=== PATIENT | male | born 1980 | race Caucasian/White ===

== ENCOUNTER 2021-05-07 21:49 | Emergency (ER) | payer OTHER, SELFPAY ==
[2021-05-07 21:56] VITALS: BP 135/100; PULSE 89; RESP 24; TEMP 37.3; O2SAT 100
--- NOTE | 2021-05-07 22:20 | ED_ITS ---
HPI - Abdominal Pain General Chief Complaint: Abdominal Pain Stated Complaint: POSS KIDNEY STONES BACK PAIN Time Seen by Provider: 05/07/21 22:20 Source: patient Mode of arrival: Ambulatory History of Present Illness HPI narrative: The patient presents with right mid back pain. The pain appears to be episodic. He initially woke with the pain this morning. The pain does not radiate to his abdomen, pelvis or genitalia. He has no history of kidney stones. He has no dysuria. He recently had right forearm/hand surgery due to fracture he suffered on April 29. He has no associated cough, chest pain or dyspnea. He has no hemoptysis. With the casting his right arm, he concludes a mid slept oddly. He has had no obvious injury to create the pain. He has a cast on his right forearm/hand, he has no other extremity discomfort. Related Data Allergies Allergy/AdvReac Type Severity Reaction Status Date / Time No Known Drug Allergies Allergy Verified 05/07/21 22:32 Review of Systems Constitutional Constitutional: Reports as per HPI and Denies headache(s) Comments: No fever, chills or cough ENT Ears, Nose, Mouth, and Throat: Denies vertigo, Denies dizziness, Denies headache(s), Denies hoarseness and Denies sore throat Cardiovascular Cardiovascular: Denies chest pain, Denies rapid heart rate and Denies dyspnea Respiratory Respiratory: Denies cough, Denies hemoptysis and Denies dyspnea Gastrointestinal Gastrointestinal: Denies abdominal pain, Denies nausea and Denies vomiting Genitourinary Genitourinary: Denies testicular pain Musculoskeletal Comments: Right midback pain. Increased with motion. Integumentary/Breasts Skin/Breast: Denies rash and Denies sores Neurologic Neurologic: Denies vertigo, Denies dizziness and Denies headache(s) Patient History Social History Smoking Status: Never smoker Smoking Status: Never smoker Exam Initial Vital Signs Initial Vital Signs: Vital Signs Temperature 99.1 F 05/07/21 21:56 Pulse Rate 89 05/07/21 21:56 Respiratory Rate 24 05/07/21 21:56 Blood Pressure 135/100 H 05/07/21 21:56 Pulse Oximetry 100 05/07/21 21:56 Const General: cooperative, healthy appearing and comfortable HENMT Head: normal to inspection, normocephalic and atraumatic Neck Neck: No JVD Chest Chest: normal inspection of the chest and normal palpation of entire chest wall Resp Effort & Inspection: normal respiratory effort Auscultation: other (Decreased breath sounds in the bases of both lungs. No rales or rhonchi.) Cardio Rate: regular rate Rhythm: regular rhythm Heart Sounds: S1 normal, S2 normal and no murmurs Pulses: radial pulses present GI Palpation: soft Percussion: normal to percussion Auscultation: normal bowel sounds Back/Spine/Pelvis Back: normal to inspection (Right lower thoracic tenderness with spasm.) Skin General: no rashes or lesions noted Neuro General: patient alert, patient awake and patient oriented x3 Gait: normal gait Motor: muscle tone normal throughout Extrem General: normal to inspection, no pedal edema and no calf tenderness Psych Mental Status: mental status grossly normal Course Course Course Narrative: The patient presented with rather acute right mid back pain. He is improved with Toradol. There is no evidence of renal calculi. He has no abdominal pain. His postop status raise concern for a pulmonary issue. He has a dose of PE or pneumonia. He has a trace right pleural effusion as well as atelectasis. It is unclear, but this may be the cause of pain. He has improved NSAIDs. He will be discharged on Motrin. Orders Ordered: ED Orders 05/07/21 22:08 Complete Blood Count AUTO DIFF Stat 05/07/21 22:30 Comprehensive Metabolic Panel Stat Lipase Stat 05/07/21 22:50 Urine Microscopic Stat 05/07/21 23:28 XR chest 2V Stat 05/08/21 01:05 CT angio chest PE protocol Stat Discontinued Medications Ketorolac Tromethamine (Ketorolac 30 Mg/Ml Vial) 30 mg IV NOW ONE Stop: 05/07/21 22:28 Last Admin: 05/07/21 22:32 Dose: 30 mg Documented by: HOME Vital Signs Vital signs: Vital Signs - 8 hr 05/07/21 21:56 Temperature 99.1 F Pulse Rate 89 Respiratory Rate 24 Blood Pressure 135/100 H Pulse Oximetry 100 MDM - Abdominal Pain Lab Data Result diagrams: 05/07/21 22:08 05/07/21 22:30 Labs: Lab Results 07/11/21 07/11/21 07/11/21 Range/Units 22:08 22:30 22:50 WBC 10.6 (4.5-11.0) X10^3/uL RBC 5.18 (4.5-5.9) X10^6/uL Hgb 14.9 (13.5-17.5) g/dL Hct 45.4 (41-53) % MCV 87.6 (80-100) fL MCH 28.9 (26-34) PG MCHC 32.9 (30-36) % RDW 13.7 (11.6-14.8) % Plt Count 295 (150-400) X10^3/uL Neut % (Auto) 49.5 L (50-75) % Lymph % (Auto) 33.8 (25-40) % [place] % (Auto) 11.3 (3-14) % Eos % (Auto) 4.3 H (2-4) % Baso % (Auto) 1.1 (0-2) % Neut # (Auto) 5300 (2897-4163) /uL Lymph # (Auto) 3600 (8423-7279) /uL [place] # (Auto) 1200 H (0-900) /uL Eos # (Auto) 500 H (0-450) /uL Baso # (Auto) 100 (0-100) /uL Sodium 141 (137-145) mmol/L Potassium 4.4 (3.4-5.1) mmol/L Chloride 107 (98-107) mmol/L Carbon Dioxide 25 (22-32) mmol/L BUN 21 H (9-20) mg/dL Creatinine 0.75 (0.66-1.25) mg/dL Estimated GFR > 60.0 (>60) mL/min BUN/Creatinine Ratio 28.0 H (6-22) Glucose 111 H (70-100) mg/dL Calcium 8.8 (8.4-10.2) mg/dL Total Bilirubin 0.3 (0.2-1.3) mg/dL AST 33 (17-59) IU/L ALT 27 (<50) IU/L Alkaline Phosphatase 76 (38-126) U/L Total Protein 7.0 (6.3-8.2) g/dL Albumin 3.8 (3.5-5.0) g/dL Globulin 3.2 (1.7-4.1) g/dL Albumin/Globulin Ratio 1.2 (1.0-2.8) Lipase 91 (23-300) U/L Urine RBC None seen (0-5/HPF) Urine WBC None seen (0-5/HPF) Urine Bacteria None seen (None) Ur Culture Indicated? Cult not indicated Micro UA Comment Microscopic normal Point of care testing: Urine Dip Bedside Urine Glucose Negative Bedside Urine Bilirubin - Negative Bedside Urine Ketone - Negative Urine Specific [place] 1.030 Bedside Urine Occult Blood +/- Bedside Urine pH 6.0 Bedside Urine Protein - Negative Bedside Urine Urobilinogen - Negative Bedside Urine Nitrite - Negative Bedside Urine Leukocytes - Negative Esterase Imaging Data Chest x-ray: Radiologist's Impression: 44 Ricardo Palmer MD [facility] - Michael Lewis 41 M 1980 ACTIVITY DATE EXAM STATUS AUTHOR 05/07/21 23:[address] [id number] ReportSigned Patient: Michael Lewis EMR#: [id number]: 1980Acct:[id number]/Sex: 41 / MDate of Service: 05/07/21Loc: EDAccession Number: [id number] Procedure: XR chest 2V Ordering Provider: Ricardo Palmer MD PROCEDURE: XR CHEST 2V INDICATIONS: Recent surgery. Right mid back pain. TECHNIQUE: 2 views of the chest were acquired. COMPARISON: None. FINDINGS: Surgical changes and devices: None. Lungs and pleura: An incomplete inspiratory result is noted, causing a crowded appearance to the lung markings. Mild generalized interstitial prominence can be seen. No pneumothorax or significant pleural effusions are seen. Mediastinum: Mediastinal contours are normal. Heart size is normal. Bones and chest wall: No suspicious bony abnormalities. Soft tissues appear unremarkable. IMPRESSION: Low lung volumes with generalized interstitial prominence. Differential diagnosis includes artifact from the low lung volumes, pulmonary edema, and atypical infection (including COVID pneumonia). If clinically appropriate, a short-term followup chest series (with PA and lateral views) performed in deep inspiration is suggested for further evaluation. Dictated by: Carlos Haines M.D. on 05/07/2021 at 22:44 Approved by: Carlos Haines M.D. on 05/07/2021 at 22:46 CT scan - chest: Radiologist's Impression: 57 Ricardo Palmer MD [facility] Patient [facility] - Michael Lewis 41 M 1980 ACTIVITY DATE EXAM STATUS AUTHOR 05/08/21 01:05 Signed Carlos Haines 05/07/21 23:28 Signed Tyler Hainessse [place] [id number] [place] [id number] Scan ReportSigned Patient: Michael Lewis EMR#: [id number]: 1980Acct:[id number]/Sex: 41 / MDate of Service: 05/08/21Loc: EDAccession Number: [id number] Procedure: CT angio chest PE protocol Ordering Provider: Ricardo Palmer MD PROCEDURE: CT ANGIO CHEST PE PROTOCOL INDICATIONS: Postop. Atypical chest pain. TECHNIQUE: After the administration of intravenous contrast, 2 mm thick sections acquired from the pulmonary apices to the posterior costophrenic angles. 3-dimensional maximum intensity projection (MIP) coronal and sagittal reformats were then acquired through the thorax. For radiation dose reduction, the following was used: automated exposure control, adjustment of mA and/or kV according to patient size. COMPARISON: [facility], CR, XR CHEST 2V, 05/07/2021, 23:25. FINDINGS: Image quality: Excellent. Pulmonary arteries: Pulmonary arteries are normal in size, and demonstrate no intraluminal filling defects to suggest central pulmonary embolism. Lungs and pleura: A trace right-sided pleural effusion is seen. Mild dependent atelectasis can be seen. There is no pneumothorax. The central airways are patent. Mediastinum: Heart size is normal, without pericardial effusion. No mediastinal or hilar adenopathy. Thoracic aorta is normal in caliber and enhancement. Esophagus is normal in caliber. There is a small hiatal hernia. Bones and chest wall: No suspicious bony lesions. Ribs and thoracic spine appear intact throughout. Thyroid gland is small in size. No axillary or supraclavicular adenopathy. Abdomen: Visualized upper abdominal solid organs appear normal in the early arterial phase of enhancement. IMPRESSION: Negative for pulmonary embolism. Trace right-sided pleural effusion. Mild dependent atelectasis. Incidental note is made of: Small hiatal hernia Dictated by: Reza CurryD. on 05/08/2021 at 0:37 Approved by: Carlos Haines M.D. on 05/08/2021 at 0:40 Discharge Plan Departure Patient Disposition: Home Clinical Impression: Atelectasis Back pain Qualifiers: Back pain location: thoracic back pain Chronicity: acute Back pain laterality: right Qualified Code(s): M54.6 - Pain in thoracic spine Instructions: Atelectasis Activity Restrictions/Additional Instructions: Advil 3 tablets every 6 hours as needed for pain. Frequent deep breathing. If symptoms persist follow-up with your doctor. If you develop fever follow-up witrh your doctor return to the ER.
[2021-05-07 22:25] LABS: Add Manual Diff / Slide Review NO; Basophils Absolute Auto 100 /uL (0-100); Basophils Percent Auto 1.1 % (0-2); Eosinophils Absolute Auto 500 /uL (0-450); Eosinophils Percent Auto 4.3 % (2-4); Hematocrit 45.4 % (41-53); Hemoglobin 14.9 g/dL (13.5-17.5); Lymphocytes Absolute Auto 3600 /uL (1100-4500); Lymphocytes Percent Auto 33.8 % (25-40); Mean Corpuscular HGB Conc 32.9 % (30-36); Mean Corpuscular Hemoglobin 28.9 PG (26-34); Mean Corpuscular Volume 87.6 fL (80-100); Monocytes Absolute Auto 1200 /uL (0-900); Monocytes Percent Auto 11.3 % (3-14); Neutrophils Absolute Auto 5300 /uL (1500-7000); Neutrophils Percent Auto 49.5 % (50-75); Platelet Count 295 X10^3/uL (150-400); Red Blood Cell Count 5.18 X10^6/uL (4.5-5.9); Red Cell Distribution Width 13.7 % (11.6-14.8); White Blood Cell Count 10.6 X10^3/uL (4.5-11.0)
[2021-05-07] MEDS: KETOROLAC 30 MG/ML VIAL IV (22:32)
[2021-05-07 22:56] LABS: Alanine Aminotransferase 27 IU/L (<50); Albumin 3.8 g/dL (3.5-5.0); Albumin Globulin Ratio 1.2 (1.0-2.8); Alkaline Phosphatase 76 U/L (38-126); Aspartate Aminotransferase 33 IU/L (17-59); Bilirubin Total 0.3 mg/dL (0.2-1.3); Blood Urea Nitrogen 21 mg/dL (9-20); Calcium 8.8 mg/dL (8.4-10.2); Carbon Dioxide 25 mmol/L (22-32); Chloride 107 mmol/L (98-107); Estimated Glomerular Filt Rate > 60.0 mL/min (>60); Globulin 3.2 g/dL (1.7-4.1); Glucose 111 mg/dL (70-100); HEMOLYSIS < 15 (0-50); Lipase 91 U/L (23-300); Potassium 4.4 mmol/L (3.4-5.1); Sodium 141 mmol/L (137-145)
[2021-05-07 23:06] LABS: Bacteria Urine None Seen; RBC Urine None Seen (0-5/HPF); WBC Urine None Seen (0-5/HPF)
[2021-05-07 23:20] LABS: Culture Indicated Urine Cult Not Indicated; Urine Comments Microscopic Normal
--- NOTE | 2021-05-07 23:28 | DI.RAD.S_ITS ---
PROCEDURE: XR CHEST 2V INDICATIONS: Recent surgery. Right mid back pain. TECHNIQUE: 2 views of the chest were acquired. COMPARISON: None. FINDINGS: Surgical changes and devices: None. Lungs and pleura: An incomplete inspiratory result is noted, causing a crowded appearance to the lung markings. Mild generalized interstitial prominence can be seen. No pneumothorax or significant pleural effusions are seen. Mediastinum: Mediastinal contours are normal. Heart size is normal. Bones and chest wall: No suspicious bony abnormalities. Soft tissues appear unremarkable. IMPRESSION: Low lung volumes with generalized interstitial prominence. Differential diagnosis includes artifact from the low lung volumes, pulmonary edema, and atypical infection (including COVID pneumonia). If clinically appropriate, a short-term followup chest series (with PA and lateral views) performed in deep inspiration is suggested for further evaluation. Dictated by: Carlos Haines M.D. on 05/07/2021 at 22:44 Approved by: Carlos Haines M.D. on 05/07/2021 at 22:46
--- NOTE | 2021-05-08 01:05 | DI.CT.S_ITS ---
PROCEDURE: CT ANGIO CHEST PE PROTOCOL INDICATIONS: Postop. Atypical chest pain. TECHNIQUE: After the administration of intravenous contrast, 2 mm thick sections acquired from the pulmonary apices to the posterior costophrenic angles. 3-dimensional maximum intensity projection (MIP) coronal and sagittal reformats were then acquired through the thorax. For radiation dose reduction, the following was used: automated exposure control, adjustment of mA and/or kV according to patient size. COMPARISON: [facility], CR, XR CHEST 2V, 05/07/2021, 23:25. FINDINGS: Image quality: Excellent. Pulmonary arteries: Pulmonary arteries are normal in size, and demonstrate no intraluminal filling defects to suggest central pulmonary embolism. Lungs and pleura: A trace right-sided pleural effusion is seen. Mild dependent atelectasis can be seen. There is no pneumothorax. The central airways are patent. Mediastinum: Heart size is normal, without pericardial effusion. No mediastinal or hilar adenopathy. Thoracic aorta is normal in caliber and enhancement. Esophagus is normal in caliber. There is a small hiatal hernia. Bones and chest wall: No suspicious bony lesions. Ribs and thoracic spine appear intact throughout. Thyroid gland is small in size. No axillary or supraclavicular adenopathy. Abdomen: Visualized upper abdominal solid organs appear normal in the early arterial phase of enhancement. IMPRESSION: Negative for pulmonary embolism. Trace right-sided pleural effusion. Mild dependent atelectasis. Incidental note is made of: Small hiatal hernia Dictated by: Carlos Haines M.D. on 05/08/2021 at 0:37 Approved by: Carlos Haines M.D. on 05/08/2021 at 0:40
[2021-05-08 02:36] VITALS: RESP 16
== END 2021-05-08 02:37 | disposition home or self-care (01) ==
PROVIDERS: Emergency Provider Emergency Medicine
DX: J98.11 Atelectasis (principal); M54.6 Pain in thoracic spine; R07.89 Other chest pain
CPT/HCPCS: 36415; 71046; 71275; 80053; 81003; 81015; 83690; 85025; 96374; 99284; J1885; Q9967